=== PATIENT | female | born 1960 | race Caucasian/White ===

== ENCOUNTER 2023-11-28 15:45 | Emergency (ER) | payer OTHER ==
[2023-11-28 15:57] VITALS: TEMP 98.6
[2023-11-28 16:19] LABS: Absolute Neutrophil Ct (ANC) 3.86 x10^3/uL (1.4-6.9); BASOPHIL % 1.3 % (0.0-0.4); Basophil (Absolute #) 0.11 x10^3/uL (0-0.4); Eosinophil % 1.3 % (0.00-5.0); Eosinophil (Absolute #) 0.11 x10^3/uL (0-0.5); Hemoglobin 12.4 g/dL (12.0-16.0); IMMATURE GRAN # 0.02 x10^3u/L (0.00-0.03); IMMATURE GRAN % 0.2 % (0.00-0.4); Lymphocytes % 43.4 % (24.0-44.0); Mean Cell Volume 92.2 fL (78-100); Mean Corpuscular Hemoglobin 30.1 pg (26-32); Mean Corpuscular Hgb Concent. 32.6 g/dL (32-36); Mean Platelet Volume 8.9 fL (7.5-11.0); Monocyte (Absolute #) 0.86 x10^3/uL (0.0-1.3); Monocytes % 9.8 % (0.0-12.0); Platelet Count 415 x10^3/uL (150-450); Red Blood Count 4.12 x10^6/uL (4.1-5.4); White Blood Count 8.8 x10^3/uL (4.0-10.5)
[2023-11-28 16:39] LABS: ALBUMIN 4.6 g/dL (3.5-5.0); ANION GAP 15.8 MEQ/L (5-15); BILIRUBIN,TOTAL 0.4 mg/dL (0.2-1.3); Creatinine 1 0.79 mg/dL (0.52-1.04); Total Protein 8.2 g/dL (6.3-8.2)
--- NOTE | 2023-11-28 18:41 | ERPHSYRPT ---
- History of Present Illness Time Seen by Provider: 11/28/23 16:00 Historian: patient Exam Limitations: no limitations Patient Subjective Stated Complaint: PT ALERT,APEARS ANXIOUS WALKED IN, RESP EASY, NO COUGH, SKIN W.D.P. NO EDEMA NOTED Triage Nursing Assessment: PT HERE FOR SUDDEN ONSET OF CHEST PAIN THAT STARTED 2 HOURS AGO WAS A 8 BUT IS NOW GONE, NO FEVER, NO COUGH Physician History: 63-year-old female presents emergency department for evaluation of sudden onset substernal chest pain. Patient was at work states she was under severe stress. No associated nausea vomiting or diaphoresis. Pain localized. Patient reports her chest pain resolved prior to arrival. Patient denies any significant past medical history but she is on blood pressure medication. Patient denies a history of the same. When present symptoms are moderate in intensity. No specific worsening or improving factors. Patient currently symptomatic this point. She voices no other complaints or concerns at this time. Portions of this note were created with voice recognition technology. There may be grammatical, spelling, punctuation or sound alike errors Timing/Duration: today Activities at Onset: none Quality: aching Location: substernal Chest Pain Radiation: no radiation Severity of Pain-Max: moderate Severity of Pain-Current: mild Modifying Factors: Improves With: nothing Associated Symptoms: denies symptoms Prior Chest Pain/Cardiac Workup: no prior chest pain Nitro Today/Relief: no nitro taken today Aspirin Treatment Today: no aspirin today Allergies/Adverse Reactions: No Known Drug Allergies Allergy (Unverified 11/28/23 15:48) Home Medications: Escitalopram Oxalate [Lexapro] 20 mg PO DAILY 11/28/23 [History] Losartan Potassium [Cozaar] 25 mg PO DAILY 11/28/23 [History] Metoprolol Tartrate 25 mg [Lopressor 25MG Tab] 25 mg PO BID 11/28/23 [History] Omeprazole Magnesium [Prilosec Otc] 20 mg PO DAILY 11/28/23 [History] Zolpidem Tartrate 10 mg [Ambien 10 MG] 10 mg PO DAILY 11/28/23 [History] clonazePAM [Clonazepam] 1 mg PO DAILY 11/28/23 [History] Hx Tetanus, Diphtheria Vaccination/Date Given: No Hx Influenza Vaccination/Date Given: Yes Hx Pneumococcal Vaccination/Date Given: No Immunizations Up to Date: Yes Travel Risk - International Travel Have you traveled outside of the country in past 3 weeks: No - Coronavirus Screening Are you exhibiting any of the following symptoms?: No Close contact with a COVID-19 positive Pt in past 14-21 Days: No - Vaccine Status Have you recieved a Covid-19 vaccination: Yes [employer]: [employer] - Vaccination Dates Date of 2cond Vaccination (if applicable): 2020 - Review of Systems Constitutional: No Symptoms, No Fever, No Chills Eyes: No Symptoms Ears, Nose, & Throat: No Symptoms Respiratory: No Symptoms, No Cough, No Dyspnea Cardiac: No Symptoms, No Chest Pain, No Edema, No Syncope Abdominal/Gastrointestinal: No Symptoms, No Abdominal Pain, No Nausea, No Vomiting, No Diarrhea Genitourinary Symptoms: No Symptoms, No Dysuria Musculoskeletal: No Symptoms, No Back Pain, No Neck Pain Skin: No Symptoms, No Rash Neurological: No Symptoms, No Dizziness, No Focal Weakness, No Sensory Changes Psychological: No Symptoms Endocrine: No Symptoms Hematologic/Lymphatic: No Symptoms Immunological/Allergic: No Symptoms All Other Systems: Reviewed and Negative - Past Medical History Cardiac History: Hypertension Psycho-Social History: Depression - Past Surgical History Past Surgical History: Yes Other Surgical History: KIDNEY STONE - Social History Smoking Status: Never smoker Exposure to second hand smoke: No Drug Use: none Patient Lives Alone: Yes - Nursing Vital Signs Nursing Vital Signs: Initial Vital Signs Temperature 98.6 F 11/28/23 15:56 Pulse Rate 87 11/28/23 15:56 Respiratory Rate 20 11/28/23 15:56 Blood Pressure 148/96 11/28/23 15:56 O2 Sat by Pulse Oximetry 96 11/28/23 15:56 Pain Scale Pain Intensity 0 - Physical Exam General Appearance: no apparent distress, alert Eye Exam: PERRL/EOMI, eyes nml inspection Ears, Nose, Throat Exam: normal ENT inspection, moist mucous membranes Neck Exam: normal inspection, non-tender, supple, full range of motion Respiratory Exam: normal breath sounds, lungs clear, airway intact, No respiratory distress Cardiovascular Exam: regular rate/rhythm, normal heart sounds, normal peripheral pulses Gastrointestinal/Abdomen Exam: soft, No tenderness, No mass Back Exam: normal inspection, No CVA tenderness, No vertebral tenderness Extremity Exam: normal inspection, normal range of motion Neurologic Exam: alert, oriented x 3, cooperative, normal mood/affect, sensation nml, No motor deficits Skin Exam: normal color, warm, dry Lymphatic Exam: No adenopathy SpO2 Interpretation: normal SpO2: 94 O2 Delivery: Room Air - Course Nursing assessment & vital signs reviewed: Yes EKG Interpreted by Me: RATE (89), Sinus Rhythm, NORMAL AXIS, NORMAL INTERVALS - Radiology Exams Chest X-ray Interpretation: Interpreted by me (No acute findings) Ordered Tests: Active Orders 24 hr Category Date Time 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 Care 11/28/23 16:13 Active EKG-ER Only STAT Care 11/28/23 16:12 Active IV Insertion STAT Care 11/28/23 16:12 Active Pulse Oximetry (ED) STAT Care 11/28/23 16:12 Active CHEST 1 VIEW (PORTABLE) Stat Exams 11/28/23 18:41 Taken CBC W DIFF Stat Lab 11/28/23 16:15 Completed CMP Stat Lab 11/28/23 16:15 Completed D-DIMER QUANTITATIVE Stat Lab 11/28/23 16:15 Completed TROPONIN Q4H Lab 11/28/23 16:15 Completed TROPONIN Q4H Lab 11/28/23 19:30 Completed TROPONIN Q4H Lab 11/29/23 00:15 Ordered Medication Summary Discontinued Medications Generic Name Dose Route Start Last Admin Trade Name Freq PRN Reason Stop Dose Admin Aspirin 324 mg 11/28/23 18:38 11/28/23 18:43 Aspirin 81 Mg Tab.Chew PO 11/28/23 18:39 324 mg STAT ONE Administration Aspirin Confirm 11/28/23 18:43 Aspirin 81 Mg Tab.Chew Administered 11/28/23 18:44 Dose 324 mg .ROUTE .STK-MED ONE Lab/Rad Data: Laboratory Result Diagrams 11/28/23 16:15 11/28/23 16:15 Laboratory Results 11/28/23 11/28/23 11/28/23 Range/Units 19:30 16:15 16:15 WBC (4.0-10.5) x10^3/uL RBC (4.1-5.4) x10^6/uL Hgb (12.0-16.0) g/dL Hct (35-47) % MCV (78-100) fL MCH (26-32) pg MCHC (32-36) g/dL RDW (11.5-14.0) % Plt Count (150-450) x10^3/uL MPV (7.5-11.0) fL Gran % (36.0-66.0) % Immature Gran % (Auto) (0.00-0.4) % Nucleat RBC Rel Count (0.00-0.1) % Eos # (Auto) (0-0.5) x10^3/uL Immature Gran # (Auto) (0.00-0.03) x10^3u/L Absolute Lymphs (auto) (1.0-4.6) x10^3/uL Absolute Monos (auto) (0.0-1.3) x10^3/uL Absolute Nucleated RBC (0.00-0.01) x10^3u/L Lymphocytes % (24.0-44.0) % Monocytes % (0.0-12.0) % Eosinophils % (0.00-5.0) % Basophils % (0.0-0.4) % Absolute Granulocytes (1.4-6.9) x10^3/uL Basophils # (0-0.4) x10^3/uL D-Dimer 0.44 (0.0-0.50) mg/L Sodium (137-145) mmol/L Potassium (3.5-5.1) mmol/L Chloride (98-107) mmol/L Carbon Dioxide (22-30) mmol/L Anion Gap (5-15) MEQ/L BUN (7-17) mg/dL Creatinine (0.52-1.04) mg/dL Estimated GFR ML/MIN Glucose (74-106) mg/dL Calcium (8.4-10.2) mg/dL Total Bilirubin (0.2-1.3) mg/dL AST (14-36) U/L ALT (0-35) U/L Alkaline Phosphatase (38-126) U/L Troponin I < 0.012 < 0.012 (0.000-0.034) ng/mL Serum Total Protein (6.3-8.2) g/dL Albumin (3.5-5.0) g/dL 11/28/23 11/28/23 Range/Units 16:15 16:15 WBC 8.8 (4.0-10.5) x10^3/uL RBC 4.12 (4.1-5.4) x10^6/uL Hgb 12.4 (12.0-16.0) g/dL Hct 38.0 (35-47) % MCV 92.2 (78-100) fL MCH 30.1 (26-32) pg MCHC 32.6 (32-36) g/dL RDW 14.0 (11.5-14.0) % Plt Count 415 (150-450) x10^3/uL MPV 8.9 (7.5-11.0) fL Gran % 44.0 (36.0-66.0) % Immature Gran % (Auto) 0.2 (0.00-0.4) % Nucleat RBC Rel Count 0.0 (0.00-0.1) % Eos # (Auto) 0.11 (0-0.5) x10^3/uL Immature Gran # (Auto) 0.02 (0.00-0.03) x10^3u/L Absolute Lymphs (auto) 3.80 (1.0-4.6) x10^3/uL Absolute Monos (auto) 0.86 (0.0-1.3) x10^3/uL Absolute Nucleated RBC 0.00 (0.00-0.01) x10^3u/L Lymphocytes % 43.4 (24.0-44.0) % Monocytes % 9.8 (0.0-12.0) % Eosinophils % 1.3 (0.00-5.0) % Basophils % 1.3 (0.0-0.4) % Absolute Granulocytes 3.86 (1.4-6.9) x10^3/uL Basophils # 0.11 (0-0.4) x10^3/uL D-Dimer (0.0-0.50) mg/L Sodium 138 (137-145) mmol/L Potassium 4.0 (3.5-5.1) mmol/L Chloride 101 (98-107) mmol/L Carbon Dioxide 24 (22-30) mmol/L Anion Gap 15.8 H (5-15) MEQ/L BUN 15 (7-17) mg/dL Creatinine 0.79 (0.52-1.04) mg/dL Estimated GFR 84.0 ML/MIN Glucose 88 (74-106) mg/dL Calcium 10.0 (8.4-10.2) mg/dL Total Bilirubin 0.40 (0.2-1.3) mg/dL AST 32 (14-36) U/L ALT 35 (0-35) U/L Alkaline Phosphatase 69 (38-126) U/L Troponin I (0.000-0.034) ng/mL Serum Total Protein 8.2 (6.3-8.2) g/dL Albumin 4.6 (3.5-5.0) g/dL - Progress Progress: improved Air Movement: good Progress Note: Patient's heart score is 3 risk factors include hypertension, BMI greater than 35, family history 11/28/23 19:51 11/28/23 20:35 63-year-old female history of hypertension presents to our ED for evaluation of chest pain while at work. Chest pain was substernal. However it resolved prior to arrival. Patient's physical exam was nonremarkable. EKG was normal sinus rhythm. Chest x-ray nonremarkable. CBC CMP negative. D-dimer negative. Troponin negative x 2. Patient received aspirin. Patient reassessed. Patient ambulated throughout our ED to see if we can reproduce her chest pain with exertion. Patient was asymptomatic. Heart score is 3. No indication for further workup at this time. Patient agrees to follow-up with primary care doctor within 48 hours for evaluation. Portions of this note were created with voice recognition technology. There may be grammatical, spelling, punctuation or sound alike errors Complexity problem addressed is moderate acute complicated, No critical care time Complex of data reviewed and analyzed is moderate. Test ordered test reviewed. Results analyzed and correlated clinically. Dr. Obregon independently reviewed the chest x-ray and EKG. Risk of complication and or risk of morbidity/mortality of patient management is low. Vital stable. Time spent to discharge patient approximately 15 minutes. Plan of care established for shared decision making. No social determinants of health present impede follow-up. Portions of this note were created with voice recognition technology. There may be grammatical, spelling, punctuation or sound alike errors Blood Culture(s) Obtained: No Antibiotics given: No Counseled pt/family regarding: lab results, diagnosis, need for follow-up, rad results - Departure Departure Disposition: Home Clinical Impression: Chest pain Condition: Stable Critical Care Time: No Referrals: SOFÍA JOINER MD [Primary Care Provider] - Follow up/PCP as directed Additional Instructions: Discharge/Care Plan ZENAIDA PENDLETON V was seen on 11/28/23 in the Emergency Room. The patient was counseled regarding Diagnosis,Lab results, Imaging studies, need for follow up and when to return to the Emergency Room. Prescriptions given: Discharge Note I have spoken with the patient and/or caregivers. I have explained the patient's condition, diagnosis and treatment plan based on the information available to me at this time. I have answered the patient's and/or caregiver's questions and addressed any concerns. The patient and/or caregivers have as good understanding of the patient's diagnosis, condition and treatment plan as can be expected at this point. The vital signs have been stable. The patient's condition is stable and appropriate for discharge from the emergency department. The patient will pursue further outpatient evaluation with the primary care physician or other designated or consulting physician as outlined in the discharge instructions. The patient and/or caregivers are agreeable to this plan of care and follow-up instructions have been explained in detail. The patient and/or caregivers have received these instruction. The patient/and or caregivers are aware that any significant change in condition or worsening of symptoms should prompt an immediate return to this or the closest emergency department or call 911.
[2023-11-28] MEDS ORDERED: BABY ASPIRIN 81 MG CHEW ONE (18:43)
[2023-11-28] MEDS: BABY ASPIRIN 81 MG CHEW PO ONE (18:43)
[2023-11-28 19:53] VITALS: O2SAT 94
[2023-11-28 20:20] VITALS: BP 143/97; PULSE 77; RESP 17
--- NOTE | 2023-11-29 08:44 | XRAY ---
Indication: Chest pain. Comparison: None Portable apical lordotic chest inflated and clear. Heart not enlarged for AP portable technique. Bony thorax intact with osteopenia. Impression: Nonacute chest.
== END 2023-11-28 20:44 | disposition home or self-care (01) ==
LOC: ED 15:45
DX: R07.9 Chest pain, unspecified (principal); I10 Essential (primary) hypertension; Z79.899 Other long term (current) drug therapy
CPT/HCPCS: 36000; 36415; 71045; 80053; 84484; 85025; 85379; 93005; 93041; 94760; 99284; A9270-GY